=== PATIENT | female | born 2000 | race Caucasian/White ===

== ENCOUNTER 2024-09-08 22:05 | Emergency (ER) | payer OTHER ==
[2024-09-08] MEDS ORDERED: AMOX/K CLAV 875 MG TAB ONE (22:49)
[2024-09-08] MEDS ORDERED: TDAP (DIPHTH,PERTUSS(ACELL),TET VAC) 0.5 ML VIAL IMVAC ONE (22:49)
--- NOTE | 2024-09-08 23:00 | ER ---
Nurse's Notes [facility] Name: Aurelia Guevara Age: 23 yrs Sex: Female : 2000 Arrival Date: 09/08/2024 Time: 22:05 Bed 25 Private MD: Diagnosis: Bitten by cat;Scratched by cat Presentation: 09/08 22:19 Chief complaint: Patient states: bit and scratched by stray cat while taking out my lg3 trash to the street. scratches and small punctures noted to right lower leg. Coronavirus screen: Client denies travel out of the [place] in the last 14 days. At this time, the client does not indicate any symptoms associated with coronavirus-19. Ebola Screen: No symptoms or risks identified at this time. Initial Sepsis Screen: Does the patient meet any 2 criteria? No. Patient's initial sepsis screen is negative. Does the patient have a suspected source of infection? No. Patient's initial sepsis screen is negative. Risk Assessment: Do you want to hurt yourself or someone else? Patient reports no desire to harm self or others. Onset of symptoms was September 08, 2024 at 21:30. 22:19 Method Of Arrival: Ambulatory lg3 22:19 Acuity: RJ 4 lg3 Triage Assessment: 22:23 General: Appears in no apparent distress. comfortable, Behavior is calm, cooperative. lg3 Pain: Complains of pain in right puente Pain does not radiate. Pain currently is 2 out of 10 on a pain scale. EENT: No deficits noted. No signs and/or symptoms were reported regarding the EENT system. Neuro: No deficits noted. Hernandez Agitation-Sedation Scale (RASS): 0 - Alert and Calm Level of Consciousness is awake, alert, obeys commands, Oriented to person, place, time, situation. Cardiovascular: No deficits noted. Denies chest pain, shortness of breath, Capillary refill < 3 seconds Clubbing of nail beds is absent JVD is absent Patient's skin is warm and dry. Respiratory: No deficits noted. Airway is patent Respiratory effort is even, unlabored, Respiratory pattern is regular, symmetrical. GI: No deficits noted. No signs and/or symptoms were reported involving the gastrointestinal system. : No signs and/or symptoms were reported regarding the genitourinary system. Derm: Skin is intact, is healthy with good turgor, Skin is dry, Skin is normal, Skin temperature is warm Wound noted right puente and anterior aspect of right ankle. Musculoskeletal: No deficits noted. No signs and/or symptoms reported regarding the musculoskeletal system. Circulation, motion, and sensation intact. Range of motion: intact in all extremities. 22:25 Bite description: bite sustained to right puente by a cat, animal information: is lg3 superficial, vaccination(s) is unknown, was sustained 1-2 hours ago. Animal status: unknown and not captured, Nayan LEE notified. 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 - Infectious Disease History:: Denies. - Social history:: Smoking status: Patient denies any tobacco usage or history of. Patient/guardian denies using alcohol, street drugs. Screenin:25 [facility] ED Fall Risk Assessment (Adult) History of falling in the last 3 months, lg3 including since admission No falls in past 3 months (0 pts) Confusion or Disorientation No (0 pts) Intoxicated or Sedated No (0 pts) Impaired Gait No (0 pts) Mobility Assist Device Used No (0 pt) Altered Elimination No (0 pt) Score/Fall Risk Level 0 - 2 = Low Risk Oriented to surroundings, Maintained a safe environment, Educated pt \T\ family on fall prevention, incl call for assistance when getting out of bed, Assessed \T\ reinforced patient's understanding of fall precautions. Abuse screen: Denies threats or abuse. Denies injuries from another. Nutritional screening: No deficits noted. Tuberculosis screening: No symptoms or risk factors identified. Assessment: 22:25 General: see triage assessment. lg3 23:12 Reassessment: Nayan LEE Officer at bedside. me1 23:13 General: Appears comfortable, well groomed, well developed, well nourished, Behavior is me1 calm, cooperative, appropriate for age, Reports bit and scratched by stray cat while taking out my trash to the street. scratches and small punctures noted to right lower leg. Pain: Complains of pain in right leg and right puente Pain does not radiate. Pain currently is 4 out of 10 on a pain scale. Quality of pain is described as stinging, Pain began suddenly, Is continuous. Neuro: Level of Consciousness is awake, alert, obeys commands, Oriented to person, place, time, situation, Appropriate for age. Cardiovascular: Patient's skin is warm and dry. Respiratory: Airway is patent Respiratory effort is even, unlabored, Respiratory pattern is regular, symmetrical. GI: No signs and/or symptoms were reported involving the gastrointestinal system. : No signs and/or symptoms were reported regarding the genitourinary system. EENT: No signs and/or symptoms were reported regarding the EENT system. Derm: Skin is healthy with good turgor, Skin is pink, warm \T\ dry. Wound noted anterior aspect of right ankle and right leg and right puente Wound is abrasion. Musculoskeletal: No signs and/or symptoms reported regarding the musculoskeletal system. Injury Description: Bite sustained to anterior aspect of right ankle and right leg and right puente caused by a cat. Vital Signs: 22:19 BP 133 / 75; Pulse 70; Resp 17; Temp 97.5(O); Pulse Ox 100% on R/A; Weight 86.18 kg lg3 (R); Height 5 ft. 7 in. (R); Pain 2/10; 23:18 BP 128 / 73; Pulse 68; Resp 16; Temp 98.1; Pulse Ox 100% ; me1 22:19 Body Mass Index 29.76 (86.18 kg, 170.18 cm) lg3 22:19 Pain Scale: Adult lg3 ED Course: 22:11 Patient arrived in ED. lg3 22:14 Alonso Simmons PA is PHCP. cp 22:14 Lam Kasper MD is Attending Physician. cp 22:23 Triage completed. lg3 22:23 Arm band placed on right wrist. lg3 22:25 Patient has correct armband on for positive identification. Family accompanied patient. lg3 22:45 Ermelinda Moy, BRADLY is Primary Nurse. me1 23:04 Wound care: to abrasion, located on anterior aspect of right ankle and right leg and me1 right puente was cleaned with Hibiclens, dressed with Neosporin, Kerlix. 23:13 Provided Education on: POC. Verbalized understanding. . me1 23:13 No provider procedures requiring assistance completed. Patient did not have IV access me1 during this emergency room visit. Administered Medications: 22:52 Drug: Boostrix Tdap IM 0.5 ml IM once; as a single dose Route: IM; Site: right deltoid; me1 23:05 Follow up: Response: No adverse reaction me1 22:52 Drug: Amoxicillin-Clavulanate PO 875 mg PO once Route: PO; me1 23:05 Follow up: Response: No adverse reaction me1 Medication: 22:53 Vaccine Information Statement (VIS) provided today. Questions and/or concerns me1 addressed. VIS edition date: May 25, 2021. Outcome: :59 Discharge ordered by MD. cp 23:19 Discharged to home ambulatory, with friend, me1 23:19 Condition: stable 23:19 Discharge instructions given to patient, friend, Instructed on discharge instructions, follow up and referral plans. medication usage, Demonstrated understanding of instructions, follow-up care, medications, Prescriptions given X 3, 23:19 Patient left the ED. me1 Signatures: Alonso Simmons PA PA Solange Bal, RN RN lg3 Ermelinda Moy, RN RN me1 Corrections: (The following items were deleted from the chart) 22:33 22:25 Bite description: bite sustained to right puente by a cat, animal information: is lg3 superficial, vaccination(s) is unknown, was sustained 1-2 hours ago. Animal status: unknown and not captured, Animal control has PD notified. lg3 23:13 22:19 Chief complaint: Patient states: bit and scratched by stray cat while taking out me1 my trash to the street. scratches and small punctures noted to right lower leg. lg3
--- NOTE | 2024-09-08 23:00 | EDPHYS ---
Physician Documentation [facility] Name: Aurelia Guevara Age: 23 yrs Sex: Female : 2000 Arrival Date: 09/08/2024 Time: 22:05 Bed 25 Private MD: ED Physician Lam Kasper HPI: 09/08 22:30 This 23 yrs old Female presents to ER via Ambulatory with complaints of Cat Scratch, cp Cat Bite. 22:30 Patient is a 23-year-old female who presents to the emergency department after being cp attacked by a stray cat near her home and taking out the trash. She reports scratches and bite lutz to her right lower leg. Incident occurred earlier this evening. 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 - Infectious Disease History:: Denies. - Social history:: Smoking status: Patient denies any tobacco usage or history of. Patient/guardian denies using alcohol, street drugs. ROS: 22:33 Constitutional: History per HPI cp 22:33 Skin: Positive for laceration(s), puncture, of the right lower leg, cp 22:33 All other systems are negative, Exam: 22:35 Constitutional: The patient appears in no acute distress, alert, awake, non-toxic, well cp developed, well nourished, uncomfortable, 22:35 Head/Face: Normocephalic, atraumatic. cp 22:35 Chest/axilla: Inspection: normal, 22:35 Cardiovascular: Rate: normal, 22:35 Respiratory: the patient does not display signs of respiratory distress, Respirations: normal, 22:35 Skin: injury, laceration(s), of the right lower leg, that can be described as linear, without bleeding, superficial with superficial and small puncture wounds noted, mild general swelling with minimal erythema. Vital Signs: 22:19 BP 133 / 75; Pulse 70; Resp 17; Temp 97.5(O); Pulse Ox 100% on R/A; Weight 86.18 kg lg3 (R); Height 5 ft. 7 in. (R); Pain 2/10; 23:18 BP 128 / 73; Pulse 68; Resp 16; Temp 98.1; Pulse Ox 100% ; me1 22:19 Body Mass Index 29.76 (86.18 kg, 170.18 cm) lg3 22:19 Pain Scale: Adult lg3 MDM: 22:14 Medical Screening Exam initiated cp 22:30 Differential diagnosis: superficial laceration, vascular injury, rabies, cellulitis. 22:58 Data reviewed: vital signs, nurses notes, and as a result, I will discharge patient. 22:58 I considered the following discharge prescriptions or medication management in the cp emergency department Medications were administered in the Emergency Department. See DEC. 22:58 Counseling: I had a detailed discussion with the patient and/or guardian regarding the cp historical points, exam findings, and any diagnostic results supporting the discharge/admit diagnosis, to return to the emergency department if symptoms worsen or persist or if there are any questions or concerns that arise at home. Response to treatment: the patient's symptoms have mildly improved after treatment. 09/08 22:25 Order name: Wound Care: please clean and dress wounds; Complete Time: 23:03 cp Administered Medications: 22:52 Drug: Boostrix Tdap IM 0.5 ml IM once; as a single dose Route: IM; Site: right deltoid; me1 23:05 Follow up: Response: No adverse reaction [facility] [place] 22:52 Drug: Amoxicillin-Clavulanate PO 875 mg PO once Route: PO; me1 23:05 Follow up: Response: No adverse reaction [facility] [place] Disposition Summary: 09/08/24 22:59 Discharge Ordered Notes: Location: Home cp Problem: new cp Symptoms: have improved cp Condition: Stable cp Diagnosis - Bitten by cat cp - Scratched by cat cp Followup: cp - With: Private Physician - When: 2 - 3 days - Reason: Worsening of condition Discharge Instructions: - Discharge Summary Sheet cp - Animal Bite, Adult cp Forms: - Medication Reconciliation Form cp - Antibiotic Education cp - Prescription Opioid Use cp - Patient Portal Instructions cp - Leadership Thank You Letter cp Prescriptions: - mupirocin 2 % Topical ointment - apply 1 application TOPICAL route 2 to 3 times per day for 7 days; 30 gram cp tube; Refills: 0, Product Selection Permitted - Augmentin 875-125 mg Oral Tablet - take 1 tablet ORAL route every 12 hours for 10 days; 20 tablet; Refills: 0, cp Product Selection Permitted - Ibuprofen 800 mg Oral Tablet - take 1 tablet ORAL route every 8 hours As needed take with food; 30 tablet; cp Refills: 0, Product Selection Permitted Signatures: Alonso Simmons PA PA cp Able, Lacie RN RN lg3 Ermelinda Moy RN RN me1
[2024-09-08 23:25] VITALS: O2SAT 100
[2024-09-08 23:27] VITALS: BP 128/73; TEMP 98.1
== END 2024-09-08 23:19 | disposition home or self-care (01) ==
LOC: ER 22:05
DX: S81.831A Puncture wound without foreign body, right lower leg, initial encounter (principal); W55.01XA Bitten by cat, initial encounter; W55.03XA Scratched by cat, initial encounter
CPT/HCPCS: 96372; 99284